=== PATIENT | male | born 1995 | race African-American/Black ===

== ENCOUNTER 2020-01-16 16:10 | Emergency (ER) | payer SELFPAY ==
[~2020-01-16] VITALS: Ht 165.1 cm; Wt 77.3 kg
[~2020-01-16 16:10] MED LIST: NOCURR
[2020-01-16 17:45] VITALS: BP 116/69
== END 2020-01-16 17:30 | disposition home or self-care (01) ==
LOC: EMS 16:10
DX: B34.9 Viral infection, unspecified (principal); Z20.828 Contact with and (suspected) exposure to other viral communicable diseases; Z71.89 Other specified counseling
CPT/HCPCS: 87635